=== PATIENT | female | born 1990 | race American Indian/Alaskan Native ===

== ENCOUNTER 2021-03-04 19:37 | Emergency (ER) | payer MEDICAID ==
[2021-03-04 19:51] VITALS: BP 119/77
--- NOTE | 2021-03-04 19:58 | Emergency Department Report ---
ED Lower Extremity HPI - General Stated Complaint: FALL/TWISTED LEFT ANKLE Time Seen by Provider: 03/04/21 19:56 - History of Present Illness Initial Comments: 30-year-old female presents to the ER today with complaints of left ankle pain. Patient states that she was helping her disabled son with it it hunting. She states that they were on a porch, and she was a in a hurry to get off the porch when she somehow tripped or either misstep and fell off the porch. She says that porch was about 3 feet high. She states that she injured her left ankle when she fell. She denies any head injury. She complains of pain mainly to the lateral aspect of the left ankle. She reports associated swelling. She reports increased pain with movement, weightbearing and ambulation. She states that she took 1 ibuprofen prior to coming in. She reports no other symptoms at this time. MD Complaint: ankle injury -: Sudden, This evening - Related Data Previous Rx's Medication Instructions Recorded Last Taken Type Ibuprofen [Motrin] 600 mg PO Q8H PRN #30 tablet 03/04/21 Unknown Rx Allergies Allergy/AdvReac Type Severity Reaction Status Date / Time No Known Allergies Allergy Unverified 03/04/21 19:51 ED Review of Systems ROS: Stated complaint: FALL/TWISTED LEFT ANKLE Other details as noted in HPI Comment: All other systems reviewed and negative Respiratory: denies: cough, orthopnea, shortness of breath, SOB with exertion, SOB at rest, stridor, wheezing Cardiovascular: denies: chest pain, palpitations, edema, syncope, paroxysmal nocturnal dyspnea Gastrointestinal: denies: abdominal pain, nausea, vomiting, diarrhea, constipation, hematemesis, melena, hematochezia Genitourinary: denies: urgency, dysuria, discharge Musculoskeletal: joint swelling, arthralgia Neurological: abnormal gait. denies: headache, weakness, numbness, paresthesias, confusion Psychiatric: denies: anxiety, depression Hematological/Lymphatic: denies: easy bleeding, easy bruising, swollen glands ED Past Medical Hx - Medications Home Medications: Home Medications Medication Instructions Recorded Confirmed Last Taken Type Ibuprofen [Motrin] 600 mg PO Q8H PRN #30 tablet 03/04/21 Unknown Rx ED Physical Exam - General General appearance: alert, in no apparent distress - Head Head exam: Present: atraumatic, normocephalic, normal inspection - Respiratory Respiratory exam: Absent: respiratory distress - Cardiovascular Cardiovascular Exam: Present: regular rate - Expanded Lower Extremity Exam Left Ankle exam: Present: full ROM (But it is mildly painful), tenderness (Mainly to the lateral aspect of the left ankle), swelling (Mild mid to lateral aspect of the left ankle). Absent: abrasion, laceration, ecchymosis, deformity, crepidus, dislocation, erythema, anterior draw sign Foot/Toe exam: Present: normal inspection, full ROM, tenderness (Over the tarsal bones laterally and mildly at the base of the fifth metatarsal bone), tenderness at base of 5th metatarsal (Mild). Absent: swelling, abrasion, laceration, ecchymosis, deformity, crepidus, dislocation, erythema, amputation, puncture wound, foreign body, calcaneal tenderness Neuro vascular tendon exam: Present: no vascular compromise Gait: Positive: observed and limited by pain - Neurological Exam Neurological exam: Present: alert, oriented X3, CN II-XII intact, normal gait - Psychiatric Psychiatric exam: Present: normal affect, normal mood - Skin Skin exam: Present: intact ED Course Vital Signs 03/04/21 03/04/21 03/04/21 19:49 19:50 19:51 Temperature 97.8 F 97.8 F Pulse Rate 81 75 Respiratory 18 22 Rate Blood Pressure 119/77 Blood Pressure 119/77 [Right] O2 Sat by Pulse 100 100 Oximetry ED Lower Extremity MDM - Radiology Data Radiology results: report reviewed Patient: VICENTE COOPER MR#: [id number] : 1990 Acct:[id number] Age/Sex: 30 / F ADM Date: 03/04/21 Loc: ED Attending Dr: Ordering Physician: BRADY ARCHULETA Date of Service: 03/04/21 Procedure(s): XR ankle 3+V LT Accession Number(s): [id number] cc: BRADY ARCHULETA Fluoro Time In Minutes: Left foot 3 views INDICATION: Twisting injury FINDINGS: MTP joints and IP joints appear normal. Midfoot alignment appears normal. Left ankle 3 views INDICATION: Ankle pain FINDINGS: Alignment appears normal. Calcaneus and talus appear intact. Diffuse swelling within the ankle. No acute fracture. Signer Name: Jordan Brown MD Signed: 03/04/2021 8:41 PM Workstation Name: [id number] Transcribed By: MACRINA Dictated By: WENDY BROWN MD Electronically Authenticated By: WENDY BROWN MD Signed Date/Time: 03/04/212040 DD/ 40 TD/TT: Patient: VICENTE COOPER MR#: [id number] : 1990 Acct:[id number] Age/Sex: 30 / F ADM Date: 03/04/21 Loc: ED Attending Dr: Ordering Physician: BRADY ARCHULETA Date of Service: 03/04/21 Procedure(s): XR foot 3+V LT Accession Number(s): [id number] cc: BRADY ARCHULETA Fluoro Time In Minutes: Left foot 3 views INDICATION: Twisting injury FINDINGS: MTP joints and IP joints appear normal. Midfoot alignment appears normal. Left ankle 3 views INDICATION: Ankle pain FINDINGS: Alignment appears normal. Calcaneus and talus appear intact. Diffuse swelling within the ankle. No acute fracture. Signer Name: Jordan Brown MD Signed: 03/04/2021 8:41 PM Workstation Name: [id number] Transcribed By: MACRINA Dictated By: WENDY BROWN MD Electronically Authenticated By: WENDY BROWN MD Signed Date/Time: 03/04/212040 DD/ 40 TD/TT: - Medical Decision Making X-rays show some soft tissue swelling about the ankle but otherwise nothing acute. Suspect ankle/foot sprain at this time. No evidence of compartment syndrome at this time. Patient will be placed in ankle air splint and William wrap and given crutches. Discussed the imaging results with patient. Discussed treatment plan with patient. Patient expressed understanding of instructions and agree with plan. Patient was stable at time of discharge. Critical care attestation.: If time is entered above; I have spent that time in minutes in the direct care of this critically ill patient, excluding procedure time. ED Disposition Clinical Impression: Left ankle sprain, Sprain of foot, left Disposition: DC- TO HOME OR SELFCARE Is pt being admited?: No Does the pt Need Aspirin: No Condition: Stable Instructions: Ankle Sprain, [id number], Foot Sprain, Elastic Bandage and RICE Therapy Additional Instructions: Rest, ice and elevate foot/ankle for the next 2-3 days. Use the William wrap/air splint and crutches as discussed. Take the motrin as prescribed. FOllow up with [facility] in 1 week if symptoms persist. Return to ED if symptoms worsens in any way. Prescriptions: Ibuprofen [Motrin] 600 mg PO Q8H PRN #30 tablet PRN Reason: Pain Referrals: GURMEET EDGAR MD [Primary Care Provider] - 3-5 Days CHAPIS CROWE MD [Staff Physician] - 7-10 days Forms: Work/School Release Form(ED) Time of Disposition: 21:01
--- NOTE | 2021-03-04 20:46 | XRay Report ---
Left foot 3 views INDICATION: Twisting injury FINDINGS: MTP joints and IP joints appear normal. Midfoot alignment appears normal. Left ankle 3 views INDICATION: Ankle pain FINDINGS: Alignment appears normal. Calcaneus and talus appear intact. Diffuse swelling within the an kle. No acute fracture. Signer Name: Jordna Brown MD Signed: 03/04/2021 8:41 PM Workstation Name: [id number]
--- NOTE | 2021-03-04 20:46 | XRay Report ---
Left foot 3 views INDICATION: Twisting injury FINDINGS: MTP joints and IP joints appear normal. Midfoot alignment appears normal. Left ankle 3 views INDICATION: Ankle pain FINDINGS: Alignment appears normal. Calcaneus and talus appear intact. Diffuse swelling within the an kle. No acute fracture. Signer Name: Jordan Brown MD Signed: 03/04/2021 8:41 PM Workstation Name: [id number]
== END 2021-03-04 21:20 | disposition home or self-care (01) ==
LOC: ED 19:37
DX: S93.402A Sprain of unspecified ligament of left ankle, initial encounter (principal); S93.602A Unspecified sprain of left foot, initial encounter; Z79.1 Long term (current) use of non-steroidal anti-inflammatories (NSAID); W01.0XXA Fall on same level from slipping, tripping and stumbling without subsequent striking against object, initial encounter; Y93.89 Activity, other specified; Y92.89 Other specified places as the place of occurrence of the external cause; Y99.8 Other external cause status
CPT/HCPCS: 99283